=== PATIENT | male | born 1965 | race African-American/Black ===

== ENCOUNTER 2017-11-06 16:30 | Emergency (ER) | payer SELFPAY ==
[2017-11-06 16:31] VITALS: BP 160/94; PULSE 75; RESP 18; TEMP 37; O2SAT 99; BMI 26.0
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
[2017-11-06] MEDS: Naproxen 250 MG Tablet 500 MG PO (17:27)
[2017-11-06 17:29] VITALS: RESP 14
== END 2017-11-06 17:41 | disposition home or self-care (01) ==
LOC: ED 17:18
PROVIDERS: Emergency Provider Emergency Medicine
DX: M54.5 Low back pain (principal); M54.2 Cervicalgia; V89.2XXA Person injured in unspecified motor-vehicle accident, traffic, initial encounter; Y93.9 Activity, unspecified; Y92.9 Unspecified place or not applicable
CPT/HCPCS: 99283

== ENCOUNTER 2018-01-06 15:00 | Outpatient (RCR) | payer SELFPAY ==
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
== END 2018-01-06 19:00 | disposition home or self-care (01) ==
LOC: PT 15:00
PROVIDERS: Family Provider Nurse Practitioner Family; PCP Nurse Practitioner Family; Visit Provider Nurse Practitioner Family
DX: M54.40 Lumbago with sciatica, unspecified side (principal); M54.2 Cervicalgia; Z87.828 Personal history of other (healed) physical injury and trauma
CPT/HCPCS: 97014; 97035; 97110; 97162; 97530; G0283

== ENCOUNTER → 2018-01-11 09:18 | Outpatient (CLI) | payer SELFPAY ==
[2018-01-11 10:48] LABS: ALB/GLOB Ratio 0.9 RATIO (0.9-2.4); AST(SGOT) 20 U/L (15-37); Alanine Aminotransfer ALT/SGPT 34 U/L (16-61); Albumin, Serum 3.8 g/dL (3.2-5.0); Alkaline Phosphatase 84 U/L (45-117); Anion Gap 8 (5-15); BUN 24 mg/dL (7-18); BUN/Creat Ratio 23.1 RATIO (10-20); Calcium,Total 9.3 mg/dL (8.5-10.1); Chloride 105 mmol/L (98-107); Cholesterol 256 mg/dL (200); Creatinine, Serum 1.04 mg/dL (0.70-1.30); EST Glomerular Filtration Rate 80 mL/min (>60); Est Glom Filt Rate - Afr Amer 97 mL/min (>60); Globulin 4.1 g/dL (2.2-4.2); Glucose 115 mg/dL (74-106); High Density Lipoprotein 44 mg/dL; Potassium 4.2 mmol/L (3.5-5.1); Protein, Total 7.9 g/dL (6.4-8.2); Sodium Level 142 mmol/L (136-145); Triglycerides 70 mg/dL; Very Low Density Lipoprotein 14 mg/dL (5-40)
== END ==
LOC: LAB.FUTURE 01-05 09:58 → LAB 09:20
PROVIDERS: Family Provider Internal Medicine; PCP Internal Medicine; Referring Provider Internal Medicine; Visit Provider Internal Medicine
DX: E78.5 Hyperlipidemia, unspecified (principal)
CPT/HCPCS: 36415; 80053; 80061

== ENCOUNTER → 2018-01-22 17:09 | Outpatient (CLI) | payer SELFPAY ==
--- NOTE | 2018-01-22 17:10 | MRI_ITS ---
STUDY: MRI LUMBAR SPINE WITHOUT CONTRAST REASON FOR EXAM: Male, 52 years old. Low back pain radiating down the lower extremities TECHNIQUE: Standardized fat and water weighted pulse sequences were obtained in the sagittal and axial planes. COMPARISON: None FINDINGS: T12-L1: Normal endplates. Normal disc height, hydration and morphology. Normal bilateral facet joints. Normal central canal and bilateral lateral recesses. Normal bilateral intervertebral neural foramina. Normal lumbar lordosis. There is no substantial scoliosis. Normal conus medullaris that terminates at the lumbar level. L1-2: Normal endplates. Normal disc height, hydration and morphology. Normal bilateral facet joints. Normal central canal and bilateral lateral recesses. Normal bilateral intervertebral neural foramina. L2-3: Normal endplates. Normal disc height, hydration and morphology. Normal bilateral facet joints. Normal central canal and bilateral lateral recesses. Normal bilateral intervertebral neural foramina. L3-4: Normal endplates. Normal disc height, hydration and morphology. Normal bilateral facet joints. Normal central canal and bilateral lateral recesses. Normal bilateral intervertebral neural foramina. L4-5: Normal endplates. Normal disc height, hydration and morphology. Normal bilateral facet joints. Normal central canal and bilateral lateral recesses. Normal bilateral intervertebral neural foramina. L5-S1: A few millimeters anterior subluxation at L5-S1 with probable pars defects. There is unroofing of the posterior disc mild narrowing of the neural foramina bilaterally. The central thecal sac is patent. Normal visualized sacral ala. Normal visualized paraspinous soft tissue structures. MRI/Spine Lumbar (Routine) IMPRESSION: Grade 1 spondylolisthesis and spondylolysis at L5-S1. Electronically Signed: Nikolai Radford MD at 23:48 EDT , Service support ,
== END ==
PROVIDERS: Family Provider Internal Medicine; PCP Internal Medicine; Referring Provider Internal Medicine; Visit Provider Internal Medicine
DX: M54.9 Dorsalgia, unspecified (principal); G89.29 Other chronic pain
CPT/HCPCS: 72148

== ENCOUNTER → 2018-01-30 10:47 | Outpatient (CLI) | payer SELFPAY ==
[2018-01-30 13:45] LABS: Anion Gap 6 (5-15); BUN 17 mg/dL (7-18); BUN/Creat Ratio 15.7 RATIO (10-20); Calcium,Total 8.8 mg/dL (8.5-10.1); Chloride 104 mmol/L (98-107); Creatinine, Serum 1.08 mg/dL (0.70-1.30); EST Glomerular Filtration Rate 76 mL/min (>60); Est Glom Filt Rate - Afr Amer 92 mL/min (>60); Glucose 113 mg/dL (74-106); Potassium 3.8 mmol/L (3.5-5.1); Sodium Level 140 mmol/L (136-145)
== END ==
PROVIDERS: Family Provider Internal Medicine; PCP Internal Medicine; Referring Provider Internal Medicine; Visit Provider Internal Medicine
DX: I10 Essential (primary) hypertension (principal)
CPT/HCPCS: 36415; 80048

== ENCOUNTER 2021-06-01 13:17 | Outpatient (CLI) | payer OTHER, SELFPAY ==
--- NOTE | 2021-06-01 13:23 | RAD_ITS ---
STUDY: X-RAY - LUMBOSACRAL SPINE REASON FOR EXAM: Male, 56 years old. Spondylolisthesis, lumbar region TECHNIQUE: 6 view(s) of the lumbosacral spine were obtained. COMPARISON: None FINDINGS: Normal lumbar lordosis. There is no substantial scoliosis. There is normal alignment of the vertebrae from L1 to L5. There is a bilateral pars defect and grade 1 spondylolisthesis at L5/S1. There is multilevel endplate spondylosis of the lumbar vertebrae. There is multi-level degenerative disc disease with multi-level disc space narrowing. No demonstrated fracture, no instability on the flexion or extension views. Normal bilateral sacral ala, sacroiliac joints, and visualized sacrum. There is atherosclerotic calcification of the abdominal aorta without a demonstrated aneurysm. RAD/L/S Spine Comp/w Bending Views IMPRESSION: Degenerative changes of the spine, as detailed above. Bilateral pars defect with grade 1 spondylolisthesis at L5/S1 without spondylolisthesis. Electronically Signed: Lam Rand MD at 14:12 EST ,
== END 2021-06-01 23:59 | disposition home or self-care (01) ==
PROVIDERS: PCP Internal Medicine; Referring Provider Anesthesiology Pain Medicine; Visit Provider Anesthesiology Pain Medicine
DX: M43.16 Spondylolisthesis, lumbar region (principal)
CPT/HCPCS: 72114

== ENCOUNTER 2023-05-19 13:49 | Emergency (ER) | payer OTHER, SELFPAY ==
[2023-05-19 13:52] VITALS: BP 110/93; PULSE 89; RESP 18; TEMP 36.9; O2SAT 100; BMI 23.6
--- NOTE | 2023-05-19 15:16 | EX.ED.DYSGE1 ---
HPI History of Present Illness Chief Complaint: General Illness Informant: patient Onset/Context/Timing Onset: Today Narrative Narrative: Patient states he woke this morning with headache, fever, chills, body aches. He had some nausea this morning and was not sure if he may have food poisoning after eating pizza and wings last night. He also was exposed to his mother who recently had influenza. [facility] Medical History Back problem High cholesterol Ruptured, tendon, Achilles Seasonal allergies Home Medications cyclobenzaprine 10 mg tablet 10 mg PO TID PRN Muscle Spasm #60 tabs 05/20/18 [Rx Last Taken Unknown] meloxicam 15 mg tablet 15 mg PO DAILY #60 tabs 05/20/18 [Rx Last Taken Unknown] nirmatrelvir 300 mg (150 mg x2)-ritonavir 100 mg tablet,dose pack (Paxlovid) See Rx Instructions PO .COMPLEX #30 tabs 05/19/23 [Rx Last Taken Unknown] Allergy/AdvReac Type Severity Reaction Status Date / Time No Known Allergies Allergy Verified 05/19/23 13:51 Family History Mother Diabetes Social History Smoking Status: Never smoker how long ago did patient quit smokin alcohol intake: current alcohol intake frequency: holidays/special occasions only Alcohol type: beer substance use type: does not use what type of physical activity do you participate in: other details: Exercises shown by PT frequency: daily ROS ROS ED Constitutional Constitutional ED: Reports chills, fever(s) and subjective Eyes Eyes: Denies change in vision or discharge from eye(s) ENT ENT ED: Denies discharge from eye(s), rhinorrhea or sore throat Cardiovascular Cardiovascular: Denies chest pain or palpitations Respiratory/Chest Respiratory/Chest: Reports cough; Denies dyspnea Gastrointestinal Gastrointestinal: Reports nausea; Denies abdominal pain, diarrhea or vomiting Genitourinary Genitourinary ED: Denies dysuria Musculoskeletal Musculoskeletal: Reports myalgias; Denies back pain or extremity pain Integumentary Denies Abrasions or rash Neurologic Neurologic: Reports headache(s); Denies weakness Psychiatric Psychiatric: Denies anxiety or depression Allergic/Immunologic Allergic/Immunologic ED: Denies lip swelling or urticaria EXAM Physical Exam Const Vital Signs: 05/19/23 13:52 Temperature 98.5 F Temperature Source Temporal Pulse Rate 89 Respiratory Rate 18 Blood Pressure 110/93 H Blood Pressure Mean 98 Pulse Ox 100 Oxygen Delivery Method Room Air Positive well nourished and well developed General Appearance ED: well developed HEENT Reports moist mucous membranes Eyes EOMs intact bilaterally Chest Wall inspection of chest normal and palpation of chest normal Resp normal respiratory effort and clear to auscultation bilaterally Cardio regular rate and regular rhythm GI non-tender Palpation: soft Extremity normal to inspection Neuro oriented x3 and no sensory deficits noted Motor Exam: strength 5/5 throughout Psych mental status grossly normal Skin no rashes or lesions noted MDM MDM MDM Narrative Medical decision making narrative: Patient had COVID, influenza, and RSV swab obtained in triage. His COVID test does return positive. Test results are discussed with him. I do not think he needs a chest x-ray at this time. He is not on any prescription medication and is interested in taking Paxlovid. I will send this prescription to the pharmacy for him. I will also write him off work for 5 days. Discharge Plan Triage Chief Complaint: General Illness ED Provider: Nirali Ward Dx/Rx/DC Orders Clinical Impression: COVID-19 Instructions: Coronavirus Disease 2019 (COVID-19): Overview, Coronavirus Disease 2019 (COVID-19): Caring for Yourself or Others Prescriptions: New Paxlovid 300 mg (150 mg x 2)-100 mg tablets,dose pack See Rx Instructions .ROUTE .COMPLEX Qty: 30 0RF Rx Instructions: take TWO 150 mg tablets of nirmatrelvir with ONE 100 mg tablet of ritonavir twice daily for 5 days No Action cyclobenzaprine 10 mg tablet 10 mg PO TID PRN (Reason: Muscle Spasm) Qty: 60 1RF meloxicam 15 mg tablet 15 mg PO DAILY Qty: 60 2RF Rx Instructions: Take with food. Stand Alone Forms: ED Work / School Excuse Primary Care Provider: Duglas Morris Referrals: Duglas Morris MD [Primary Care Provider] - 1-2 Weeks Disposition Disposition: Home, Self Care
[2023-05-19 15:32] VITALS: BP 110/93; PULSE 89; RESP 18; TEMP 36.9; O2SAT 100
--- OUTSIDE RECORDS SUMMARY | 2023-05-19 15:37 | XMS RPT_ITS | CCD ---
Author Name Unknown Address [address] [place] [address] Organization [facility] Care Team Providers Care Back Tacker Name Role Phone Chrystal Jonas (Mechanical Engineering Specialist) Primary Care Provider CHRYSTAL JONAS Primary Care Unavailable SELF Referring Unavailable CHRYSTAL JONAS Primary Care Unavailable Allergies Allergy Classification Reported Allergen(s) Allergy Type Date of Onset Reaction(s) Facility (4 sources) Seasonal allergy; Translations: [SEASONAL ALLERGIES] Allergy to substance 9 Other: See Comments [facility] Medications Current Medications Medication Drug Class(es) Dates Sig (Normalized) Sig (Original) famotidine 20 mg oral tablet (1 source) Histamine-2 Receptor Antagonist Start: 10-03-2022 End: 11-02-2022 take 1 tablet by mouth twice daily famotidine (PEPCID) 20 mg tablet Take 1 tablet by mouth twice daily. 60 tablet 0 10/03/2022 11/02/2022 Active Completed/Discontinued Medications Medication Drug Class(es) Dates Sig (Normalized) Sig (Original) acetaminophen 500 mg oral tablet (3 sources) Start: 08-24-2018 take 2 tablets by mouth every eight hours as needed for pain acetaminophen (TYLENOL) 500 mg tablet Indications: Achilles tendon injury, left, initial encounter Take 2 tablets by mouth every 8 hours as needed for Pain. 30 tablet 0 08/24/2018 Active Problems Active Problems Problem Classification Problem Date Documented Da te Episodic/Chronic Esophageal disorders (1 source) Gastroesophageal reflux disease without esophagitis; Translations: [Gastro-esophageal reflux disease without esophagitis] Chronic Other upper respiratory disease (1 source) Seasonal allergy; Translations: [Other seasonal allergic rhinitis] Chronic Past or Other Problems Problem Classification Problem Date Documented Da te Episodic/Chronic Sprains and strains (3 sources) Rupture of left Achilles tendon; Translations: [Strain of left Achilles tendon, subsequent encounter] Onset: 10-22-2018 10-22-2018 Episodic Results Test Name Value Interpretation Reference Range Facil ity Vital Signs Date Time Vital Sign Value Performing Clinician Adore palomares 10-03-2022 12:35-0400 Body temperature 98.2 [degF] Coco Yoon APRN.FLACA Work Phone: [facility] 10-03-2022 12:35-0400 Body weight 79.83 kg Coco Yoon APRN.ENGRAVER LETTERING Work Phone: [facility] 10-03-2022 12:35-0400 Diastolic blood pressure 70 mm[Hg] Coco Yoon FIRE ENGINE PUMP OPERATOR.ENGRAVER LETTERING Work Phone: [facility] 10-03-2022 12:35-0400 Heart rate 78 /min Coco Yoon APRN.ENGRAVER LETTERING Work Phone: [facility] 10-03-2022 12:35-0400 Respiratory rate 16 /min Coco Yoon APRN.ENGRAVER LETTERING Work Phone: [facility] 10-03-2022 12:35-0400 SaO2% (BldA) [Mass fraction] 97 % Coco Yoon APRN.ENGRAVER LETTERING Work Phone: [facility] 10-03-2022 12:35-0400 Systolic blood pressure 120 mm[Hg] Coco Yoon APRN.ENGRAVER LETTERING Work Phone: [facility] Encounters Encounter Date Encounter Type Care Provider Facility Start: 12-31-2022 End: 12-31-2022 ambulatory CHRYSTAL JONAS Facility:[facility] Start: 10-03-2022 End: 10-03-2022 ambulatory SELF Facility:[facility] Start: 10-03-2022 End: 10-03-2022 Patient encounter procedure Coco Yoon APRN.ENGRAVER LETTERING Work Phone: [facility] Plan of Treatment Date Care Activity Detail Author Start: 11-30-2022 Influenza vaccination INFLUENZA (#1) [facility] Start: 04-01-2022 DEPRESSION ASSESSMENT DEPRESSION ASS ESSMENT [facility] Start: 11-30-2021 Influenza vaccination INFLUENZA (Sea son Ended) [facility] Start: 2021 PROSTATE CANCER SCRE ENING DISCUSSION PROSTATE CANCER SCREENING DISCUSSION [facility] Start: 02-06-2016 SHINGRIX VACCINE (1 of 2) SHINGRIX V ACCINE (1 of 2) [facility] Start: 2011 COLOGUARD (FIT-DNA) COLOGUARD (FIT-D NA) [facility] Start: 2011 Colonoscopy COLONOSCOPY [facility] Start: 2011 COLORECTAL CANCER SCREENING COLORECTAL CANCER SCREENING [facility] Start: [address] COLONOGRAPHY [facility] Start: 2011 DIABETES SCREEN DIABETES SCREEN [facility] Start: 2011 FECAL OCCULT BLOOD FECAL OCCULT BLOO D [facility] Start: 2011 SIGMOIDOSCOPY SIGMOIDOSCOPY [facility] Start: 2001 LIPID SCREEN LIPID SCREEN [facility] Start: 1985 Urine microalbumin profile DTAP,TDAP ,TD (1 - Tdap) [facility] Start: 02-06-1984 HEPATITIS C SCREENING HEPATITIS C SC REENING [facility] Start: 02-06-1984 HIV SCREENING HIV SCREENING [facility] Start: [address] [facility] assessment DEPRESSION SCREENING [facility] Start: 1971 COVID-19 VACCINE (#1) COVID-19 VACCI NE (#1) [facility] Start: 1971 COVID-19 VACCINE (1) COVID-19 VACCIN E (1) [facility] Start: 1966 COVID-19 VACCINE (#1) COVID-19 VACCI NE (#1) [facility] Start: 1966 HEPATITIS B (1 of 3 - 3-dose series) HEPATITIS B (1 of 3 - 3-dose series) [facility] Payers Date Payer Category Payer Unknown [facility] [employer]ED [id number] 2021-Present [phone] [address] [place] [address] PPO [id number] 2021 Unknown [id number] 2018 Unknown [facility] PRE [employer] SELF FUNDED [id number] 2018-Present [phone] [address] [place] [address] PPO [id number] Social History Date Type Detail Facility Start: 08-24-2018 End: 10-03-2022 Tobacco smoking status NHIS Never smoked tobacco [facility] Start: 08-24-2018 End: 10-03-2022 Tobacco use and exposure Smokeless tobacco non-user [facility] Start: 02-24-2019 End: 10-03-2022 Alcohol intake Current drinker of alcohol (finding) [facility] Start: 09-15-2018 History SDOH Alcohol Comment occasionally [facility] Start: 1965 Sex Assigned At Not on file [facility] Progress note 12-31-2022 Note Date & Type Note Facility 12-31-2022 Note HNO ID: [id number] Author: Harika Bello APRN.ENGRAVER LETTERING Service: ? Author Type: Nurse Practitioner Type: Progress Notes Filed: 12/31/2022 4:27 PM Note Text: Subjective Came in with complaints of itching rash on face neck and groin. Patient said he was washing his car and using soaps and remembers touching his face. Patient says it just itches. Patient denies any pain or spreading. Patient denies any other symptoms at this time. The history is provided by the patient. No health information specialist was used. Rash Review of Systems Constitutional: Negative. Skin: Positive for itching and rash. Objective Physical Exam Constitutional: Appearance: Normal appearance. Pulmonary: Effort: Pulmonary effort is normal. Skin: Comments: Contact dermatitis located in the areas marked above. Patient did not disclose his groin area. Neurological: Mental Status: He is alert. No past medical history on file. No past surgical history on file. ALLERGIES Seasonal Allergies MEDICATIONS cetirizine (ZYRTEC) 10 mg tablet Take 1 tablet by mouth once daily. fluticasone (FLONASE) 50 mcg/actuation nasal spray Use 2 Sprays in each nostril once daily. Rinse mouth after use. Ascorbic Acid (VITAMIN C) 100 mg tablet Take 100 mg by mouth once daily. multivitamin-ferrous fumarate-folic acid (CENTRUM) Take 1 tablet by mouth once daily. predniSONE (DELTASONE) 10 mg tablet Take 4 tabs daily for 3 days, then 2 tabs daily for 3 days, then 1 tab daily for 3 days with food. triamcinolone acetonide (KENALOG) 0.1 % cream Apply 1 application to affected area three times daily. Apply sparingly to area for rash/itching. (Patient not taking: Reported on 10/03/2022) meloxicam (MOBIC) 15 mg tablet Take 1 tablet by mouth once daily. (Patient not taking: Reported on 10/03/2022) cyclobenzaprine (FLEXERIL) 10 mg tablet 10 mg. (Patient not taking: Reported on 10/03/2022) ibuprofen (MOTRIN) 600 mg tablet Take 600 mg by mouth. hydroCHLOROthiazide (HYDRODIURIL, ESIDRIX) 12.5 mg tablet 12.5 mg. acetaminophen (TYLENOL) 500 mg tablet Take 2 tablets by mouth every 8 hours as needed for Pain. (Patient not taking: Reported on 02/09/2019 ) No family history on file. Social History Tobacco Use Smoking status: Never Smokeless tobacco: Never Substance Use Topics Alcohol use: Yes Comment: occasionally Drug use: Never ASSESSMENT/PLAN: 1. Allergic contact dermatitis due to plants, except food - ICD9: 692.6, ICD10: L23.7 - PREDNISONE 10 MG TABLET Patient educated about proper use of medication supportive therapies. Patient will follow-up if signs and symptoms seem to getting worse not better. Patient was okay with this care plan. Harika Bello APRN.ENGRAVER LETTERING [facility] Progress note 10-03-2022 Note Date & Type Note Facility 10-03-2022 Note HNO ID: [id number] Author: Coco Yoon APRN.ENGRAVER LETTERING Service: ? Author Type: Nurse Practitioner Type: Progress Notes Filed: 10/03/2022 1:04 PM Note Text: Subjective The history is provided by the patient. No health information specialist was used. NING Miller is a 57 year old male who presents today for CC of seasonal allergies - having mild nasal drainage, and itchy watery eyes. Also has a h/o acid reflux, needs prescription for something to help. He denies any chest pain or sob. BP 120/70 Pulse 78 Temp 36.8 ?C (98.2 ?F) Resp 16 Wt 79.8 kg (176 lb) SpO2 97% BMI 24.55 kg/m? Social History Tobacco Use Smoking status: Never Smokeless tobacco: Never Substance Use Topics Alcohol use: Yes Comment: occasionally Drug use: Never History reviewed. No pertinent past medical history. I have confirmed and edited as necessary, the [facility] Review of Systems Constitutional: Negative for chills and fever. HENT: Negative for congestion, ear pain, sinus pain and sore throat. Eyes: Positive for discharge (clear, itchy watery). Respiratory: Negative for cough, sputum production, shortness of breath and wheezing. Cardiovascular: Positive for chest pain. Gastrointestinal: Positive for heartburn. Negative for abdominal pain, diarrhea, nausea and vomiting. Musculoskeletal: Negative for myalgias. Neurological: Negative for headaches. Objective Physical Exam Vitals and nursing note reviewed. Pulmonary: Effort: Pulmonary effort is normal. Skin: General: Skin is warm and dry. Neurological: Mental Status: He is alert and oriented to person, place, and time. Psychiatric: Mood and Affect: Affect normal. ASSESSMENT/PLAN: 1. Seasonal allergies - ICD9: 477.9, ICD10: J30.2 (primary diagnosis) Zyrtec, flonase, and zaditor as ordered Follow up with PCP prn 2. Gastroesophageal reflux disease without esophagitis - ICD9: 530.81, ICD10: K21.9 - pepcid as ordered Follow up with PCP Diagnosis and treatment plan were discussed and questions were answered to the patient's satisfaction. Pt acknowledged understanding of concepts and follow up plan. Specific signs and symptoms that would indicate the need for higher level of care were discussed in detail warranting prompt ER evaluation. Coco Yoon APRN.CNP [facility] Instructions 10-03-2022 Patient Instructions Note Date & Type Note Facility 10-03-2022 Instructions Coco Yoon APRN.CNP - 10/03/2022 12:51 PM EDT For Allergies: Zyrtec 10 mg By mouth daily at bedtime Flonase 2 sprays in each nostril once a day Zaditor eye drops daily For Acid reflux On an empty stomach take 1 - 20 mg Pepcid, wait 30 min before eating, salgado this twice a day Recommend follow up in 2 weeks with Primary Care Provider. To ER for worsening symptoms, increased pain, fevers, vomiting, decreased urine output, blood in her urine blood in her stools or dark tarry stools. documented in this encounter [facility] History of Present illness Narrative 10-03-2022 Coco Yoon APRN.FLACA - 10/03/2022 12:28 PM EDT Note Date & Type Note Facility 10-03-2022 History of Presen t illness Narrative Subjective The history is provided by the patient. No health information specialist was used. NING Miller is a 57 year old male who presents today for CC of seasonal allergies - having mild nasal drainage, and itchy watery eyes. Also has a h/o acid reflux, needs prescription for something to help. He denies any chest pain or sob. BP 120/70 Pulse 78 Temp 36.8 C (98.2 F) Resp 16 Wt 79.8 kg (176 lb) SpO2 97% BMI 24.55 kg/m Social History Tobacco Use Smoking status: Never Smokeless tobacco: Never Substance Use Topics Alcohol use: Yes Comment: occasionally Drug use: Never History reviewed. No pertinent past medical history. I have confirmed and edited as necessary, the [facility] Review of Systems Constitutional: Negative for chills and fever. HENT: Negative for congestion, ear pain, sinus pain and sore throat. Eyes: Positive for discharge (clear, itchy watery). Respiratory: Negative for cough, sputum production, shortness of breath and wheezing. Cardiovascular: Positive for chest pain. Gastrointestinal: Positive for heartburn. Negative for abdominal pain, diarrhea, nausea and vomiting. Musculoskeletal: Negative for myalgias. Neurological: Negative for headaches. Objective Physical Exam Vitals and nursing note reviewed. Pulmonary: Effort: Pulmonary effort is normal. Skin: General: Skin is warm and dry. Neurological: Mental Status: He is alert and oriented to person, place, and time. Psychiatric: Mood and Affect: Affect normal. ASSESSMENT/PLAN: 1. Seasonal allergies - ICD9: 477.9, ICD10: J30.2 (primary diagnosis) Zyrtec, flonase, and zaditor as ordered Follow up with PCP prn 2. Gastroesophageal reflux disease without esophagitis - ICD9: 530.81, ICD10: K21.9 - pepcid as ordered Follow up with PCP Diagnosis and treatment plan were discussed and questions were answered to the patient's satisfaction. Pt acknowledged understanding of concepts and follow up plan. Specific signs and symptoms that would indicate the need for higher level of care were discussed in detail warranting prompt ER evaluation. Coco Yoon APRN.ENGRAVER LETTERING documented in this encounter [facility] Note 08-20-2021 Telephone Encounter - Kim Almonte RN - 08/20/2021 8:08 PM EDT Note Date & Type Note Facility 08-20-2021 Miscellaneous Notes Rash. He is signing on now to [facility] Reason for Disposition [1] Purple or blood-colored rash (spots or dots) AND [2] no fever AND [3] sounds well to triager Answer Assessment - Initial Assessment Questions 1. APPEARANCE of RASH: Red dots that do not cookie. One looks like a blister 2. SIZE: Tip of a pen 3. LOCATION: Arms and back 4. COLOR: Red and some skin colored 5. ONSET: night 6. FEVER:Denies 7. ITCHING: It did prior to putting on calamine lotion 8. CAUSE: Unknown 9. MEDICATION FACTORS: Only med he is on cyclobenzaprine. He is also applying calamine lotion, hydrocortisone cream and an otc anti-itch cream to the rash 10. OTHER SYMPTOMS: Denies Protocols used: RASH OR REDNESS - [id number] documented in this encounter [facility] Note 07-27-2021 Telephone Encounter - Haley Bustillos RN - 07/27/2021 9:47 PM EDT Note Date & Type Note Facility 07-27-2021 Miscellaneous Notes Patient calling with request for health information: patient requesting health information about requesting if he can take medication for his headache after having a cortisone shot today. Patient denies any new or worsening symptoms of which a provider is not aware: No. Patient is having a headache currently but declines triage at this time. Patient inquiring if he can take tylenol for his headache. Instructed patient that as long as he was not told by his physician then he could take tylenol for his headache per package directions. GO TO THE EMERGENCY ROOM OR CALL 911 IF: * You develop any new symptoms * Your condition worsens * You are concerned or anxious about your condition for any other reason. If you have any questions, you can call Nurse longwall foreman back. documented in this encounter [facility] Evaluation note Note Date & Type Note Facility documented in this encounter [facility] Summary Purpose Family History No Family History Records Found Advance Directives No Advanced Directives Records Found Additional Source Comments Source Comments (unrecognize d section and content) In the event this informatio n is protected by the Federal Confidentiality of Alcohol and Drug Abuse Patient Records regulations: The Federal rules restrict any use of the information to criminally investigate or prosecute any alcohol or drug abuse patient.[facility] the event this information is protected by the Federal Confidentiality of Alcohol and Drug Abuse Patient Records regulations: The Federal rules restrict any use of the information to criminally investigate or prosecute any alcohol or drug abuse patient.[facility] the event this information is protected by the Federal Confidentiality of Alcohol and Drug Abuse Patient Records regulations: The Federal rules restrict any use of the information to criminally investigate or prosecute any alcohol or drug abuse patient.[facility] Reason for Visit (unrecogniz ed section and content) Reason Comments Derm Problem Reason Comments Eye Problem left eye swelling un hermilo eye and acid reflex x over 6 months Care Teams (unrecognized sec tion and content) Back Tacker Relationship Specialty Start Date End Date Chrystal Jonas ([facility]) [address] [place] [address] PCP - General Family Medicine 08/24/18 (unrecognized sect ion and content) No Status Records Found INFORMATION SOURCE (unrecogn ized section and content) FOR RECORDS PERTAINING TO PATIENTS WHO ARE OR HAVE BEEN ENROLLED IN A CHEMICAL DEPENDENCY/SUBSTANCEABUSE PROGRAM, SOME INFORMATION MAY BE OMITTED. This clinical summary was aggregated from multiple sources. Caution should be exercised in using it in the provision of clinical care. This summary normalizes information from multiple sources, and as a consequence, information in this document may materially change the coding, format and clinical context of patient data. In addition, data may be omitted in some cases. CLINICAL DECISIONS SHOULD BE BASED ON THE PRIMARY CLINICAL RECORDS. [facility] [employer] [facility]. provides no warranty or guarantee of the accuracy or completeness of information in this document.
== END 2023-05-19 15:55 | disposition home or self-care (01) ==
LOC: ED 15:35
PROVIDERS: Emergency Provider Emergency Medicine; PCP Internal Medicine; Visit Provider Emergency Medicine
DX: U07.1 COVID-19 (principal); E78.00 Pure hypercholesterolemia, unspecified
CPT/HCPCS: 87631; 99282

== ENCOUNTER → 2023-05-29 | Outpatient (CLI) | payer OTHER, SELFPAY ==
[2023-05-29 16:37] LABS: Absolute Lymphocyte Count 1.92 X10^3/uL (0.83-4.51); Absolute Neutrophil Count 3.3 X10^3/uL (2.0-7.7); Basophil# 0.03 X10^3/uL; Basophil% 0.5 % (0-1); Eosinophil# 0.11 X10^3/uL; Eosinophils% 1.8 % (0-5); Hematocrit 40.6 % (40-54); Hemoglobin 12.6 g/dL (13.0-16.5); Lymphocyte # 1.92 X10^3/ul (0.83-4.51); Lymphocyte % 32.1 % (19-41); Mean Corpuscular Hgb 25.5 pg (27.0-32.0); Mean Corpuscular Volume 82.2 fL (80-94); Mean Platelet Vol. 10.6 fl (6.2-12.0); NRBC Flagged by Analyzer 0 % (0-5); Neutrophil # 3.29 X10^3/uL (2.7-7.7); Neutrophil % 55.1 % (47-70); Platelet Count 305 K/mm3 (150-450); RBC Distribution Width CV 14.8 % (11.6-14.6); RBC Distribution Width SD 44.1 fl (35.1-43.9); Red Blood Count 4.94 M/mm3 (4.6-6.2)
[2023-05-29 16:55] LABS: ALB/GLOB Ratio 0.9 RATIO (0.9-2.4); AST(SGOT) 12 U/L (15-37); Alanine Aminotransfer ALT/SGPT 20 U/L (16-61); Albumin, Serum 3.6 g/dL (3.2-5.0); Alkaline Phosphatase 73 U/L (45-117); Anion Gap 4 (5-15); BUN 23 mg/dL (7-18); BUN/Creat Ratio 23.1 RATIO (10-20); Calcium,Total 9.2 mg/dL (8.5-10.1); Chloride 106 mmol/L (98-107); Cholesterol 226 mg/dL (200); EST Glomerular Filtration Rate 82 mL/min (>60); Est Glom Filt Rate - Afr Amer 99 mL/min (>60); Globulin 4.2 g/dL (2.2-4.2); Glucose 124 mg/dL (74-106); High Density Lipoprotein 41 mg/dL; Potassium 4.2 mmol/L (3.5-5.1); Protein, Total 7.8 g/dL (6.4-8.2); Sodium Level 139 mmol/L (136-145); Triglycerides 101 mg/dL; Very Low Density Lipoprotein 20 mg/dL (5-40)
--- OUTSIDE RECORDS SUMMARY | 2023-05-30 00:18 | XMS RPT_ITS | CCD ---
Author Name Unknown Address [address] [place] [address] Organization [facility] Care Team Providers Care Pastoral Counselor Name Role Phone Chrystal Jonas (Procurement Coordinator) Primary Care Provider CHRYSTAL JONAS Primary Care Unavailable SELF Referring Unavailable CHRYSTAL JONAS Primary Care Unavailable Allergies Allergy Classification Reported Allergen(s) Allergy Type Date of Onset Reaction(s) Facility (4 sources) Seasonal allergy; Translations: [SEASONAL ALLERGIES] Allergy to substance 9 Other: See Comments [facility] Medications Current Medications Medication Drug Class(es) [...] Time Vital Sign Value Performing Clinician Adore palomaers 10-03-2022 12:35-0400 Body temperature 98.2 [degF] Coco Yoon APRN.FLACA Work Phone: [facility] 10-03-2022 12:35-0400 Body weight 79.83 kg Coco Yoon APRN.BOOM TENDER Work Phone: [facility] 10-03-2022 12:35-0400 Diastolic blood pressure 70 mm[Hg] Coco Yoon DRUM DRIER.BOOM TENDER Work Phone: [facility] 10-03-2022 12:35-0400 Heart rate 78 /min Coco Yoon APRN.BOOM TENDER Work Phone: [facility] 10-03-2022 12:35-0400 Respiratory rate 16 /min Coco Yoon APRN.BOOM TENDER Work Phone: [facility] 10-03-2022 12:35-0400 SaO2% (BldA) [Mass fraction] 97 % Coco Yoon APRN.BOOM TENDER Work Phone: [facility] 10-03-2022 12:35-0400 Systolic blood pressure 120 mm[Hg] Coco Yoon APRN.BOOM TENDER Work Phone: [facility] Encounters Encounter Date Encounter Type Care Provider Facility Start: 12-31-2022 End: 12-31-2022 ambulatory CHRYSTAL JONAS Facility:[facility] Start: 10-03-2022 End: 10-03-2022 ambulatory SELF Facility:[facility] Start: 10-03-2022 End: 10-03-2022 Patient encounter procedure Coco Yoon APRN.BOOM TENDER Work Phone: [facility] Plan of Treatment Date Care Activity Detail Author Start: 11-30-2022 Influenza vaccination INFLUENZA (#1) [facility] Start: 04-01-2022 DEPRESSION ASSESSMENT DEPRESSION ASS ESSMENT [facility] Start: 11-30-2021 Influenza vaccination INFLUENZA (Sea son Ended) [facility] Start: 2021 PROSTATE CANCER SCRE ENING DISCUSSION PROSTATE CANCER SCREENING DISCUSSION [facility] Start: 02-06-2016 SHINGRIX VACCINE (1 of 2) SHINGRIX V ACCINE (1 of 2) [facility] Start: 2011 COLOGUARD (FIT-DNA) COLOGUARD (FIT-D NA) [facility] Start: 2011 Colonoscopy COLONOSCOPY [facility] Start: 2011 COLORECTAL CANCER SCREENING COLORECTAL CANCER SCREENING [facility] Start: [address] COLONOGRAPHY [facility] Start: 2011 DIABETES SCREEN DIABETES SCREEN [facility] Start: 2011 FECAL OCCULT BLOOD FECAL OCCULT BLOO D [facility] Start: 2011 SIGMOIDOSCOPY SIGMOIDOSCOPY [facility] Start: 2001 LIPID SCREEN LIPID SCREEN [facility] Start: 1985 Urine microalbumin profile DTAP,TDAP ,TD (1 - Tdap) [facility] Start: 02-06-1984 HEPATITIS C SCREENING HEPATITIS C SC REENING [facility] Start: 02-06-1984 HIV SCREENING HIV SCREENING [facility] Start: 1978 Adult depression [facility] assessment DEPRESSION SCREENING [facility] Start: 1971 COVID-19 VACCINE (#1) COVID-19 VACCI NE (#1) [facility] Start: 1971 COVID-19 VACCINE (1) COVID-19 VACCIN E (1) [facility] Start: 1966 COVID-19 VACCINE (#1) COVID-19 VACCI NE (#1) [facility] Start: 1966 HEPATITIS B (1 of 3 - 3-dose series) HEPATITIS B (1 of 3 - 3-dose series) [facility] Payers Date Payer Category Payer Unknown [facility] [employer] [id number] 2021-Present [phone] [address] [place] [address] PPO [id number] 2021 Unknown [id number] 2018 Unknown [facility] [employer] [id number] 2018-Present [phone] [address] [place] [address] PPO [id number] Social History Date Type Detail Facility Start: 08-24-2018 End: 10-03-2022 Tobacco smoking status NHIS Never smoked tobacco [facility] Start: 08-24-2018 End: 10-03-2022 Tobacco use and exposure Smokeless tobacco non-user [facility] Start: 02-24-2019 End: 10-03-2022 Alcohol intake Current drinker of alcohol (finding) [facility] Start: 09-15-2018 History SDOH Alcohol Comment occasionally [facility] Start: 1965 Sex Assigned At Not on file C [facility] Progress note 12-31-2022 Note Date & Type Note Facility 12-31-2022 Note HNO ID: [id number] Author: Harika Bello APRN.BOOM TENDER Service: ? Author Type: Nurse Practitioner Type: [...] history is provided by the patient. No foreign language interpreter was used. Rash Review of Systems Constitutional: [...] okay with this care plan. Harika Bello APRN.BOOM TENDER [facility] Progress note 10-03-2022 Note Date & Type Note Facility 10-03-2022 Note HNO ID: [id number] Author: Coco Yoon APRN.BOOM TENDER Service: ? Author Type: Nurse Practitioner Type: Progress Notes Filed: 10/03/2022 1:04 PM Note Text: Subjective The history is provided by the patient. No foreign language interpreter was used. NING Miller is a 57 [...] have confirmed and edited as necessary, the [facility] Review of Systems Constitutional: Negative for chills [...] warranting prompt ER evaluation. Coco Yoon APRN.CNP [facility] Instructions 10-03-2022 Patient Instructions Note Date & [...] dark tarry stools. documented in this encounter [facility] History of Present illness Narrative 10-03-2022 Coco Yoon APRN.FLACA - 10/03/2022 12:28 PM EDT Note Date & Type Note Facility 10-03-2022 History of Presen t illness Narrative Subjective The history is provided by the patient. No foreign language interpreter was used. NING Miller is a 57 [...] have confirmed and edited as necessary, the [facility] Review of Systems Constitutional: Negative for chills [...] detail warranting prompt ER evaluation. Coco Yoon APRN.BOOM TENDER documented in this encounter [facility] Note 08-20-2021 Telephone Encounter - Kim [...] Denies Protocols used: RASH OR REDNESS - [id number] documented in this encounter [facility] Note 07-27-2021 Telephone Encounter - Haley [...] have any questions, you can call Nurse sports information director back. documented in this encounter [facility] Evaluation note Note Date & Type Note Facility documented in this encounter [facility] Summary Purpose Family History No Family [...] or prosecute any alcohol or drug abuse patient[facility] the event this information is protected by the Federal Confidentiality of Alcohol and Drug Abuse Patient Records regulations: The Federal rules restrict any use of the information to criminally investigate or prosecute any alcohol or drug abuse patient.[facility] the event this information is protected by the Federal Confidentiality of Alcohol and Drug Abuse Patient Records regulations: The Federal rules restrict any use of the information to criminally investigate or prosecute any alcohol or drug abuse patient.[facility] Reason for Visit (unrecogniz ed section and content) Reason Comments Derm Problem Reason Comments Eye Problem left eye swelling un hermilo eye and acid reflex x over 6 months Care Teams (unrecognized sec tion and content) Pastoral Counselor Relationship Specialty Start Date End Date Chrystal Jonas ([facility]) [address] [place] [address] PCP - General Family Medicine [...] BE BASED ON THE PRIMARY CLINICAL RECORDS. [facility] [employer] [facility]. provides no warranty or guarantee of the accuracy or completeness of information in this document.
== END | disposition home or self-care (01) ==
LOC: BIMLAB 15:00
PROVIDERS: PCP Internal Medicine; Referring Provider Internal Medicine; Visit Provider Internal Medicine
DX: I10 Essential (primary) hypertension (principal)
CPT/HCPCS: 36415; 80053; 80061; 85025

== ENCOUNTER → 2023-09-11 | Outpatient (CLI) | payer OTHER, SELFPAY ==
[2023-09-11 17:11] LABS: Cholesterol 242 mg/dL (200); High Density Lipoprotein 48 mg/dL; PSA,Total - Annual Screen 0.48 ng/mL (0.00-4.00); Triglycerides 92 mg/dL; Very Low Density Lipoprotein 18 mg/dL (5-40)
== END | disposition home or self-care (01) ==
LOC: BIMLAB 15:12
PROVIDERS: PCP Internal Medicine; Visit Provider Internal Medicine
DX: Z12.5 Encounter for screening for malignant neoplasm of prostate (principal); E78.5 Hyperlipidemia, unspecified
CPT/HCPCS: 36415; 80061; 84153; G0103

== ENCOUNTER 2023-10-18 07:00 | Emergency (ER) | payer OTHER, SELFPAY ==
[2023-10-18 07:02] VITALS: BP 121/79; PULSE 63; RESP 16; TEMP 36.7; O2SAT 99; BMI 24.3
--- NOTE | 2023-10-18 07:14 | EDS_ITS ---
HPI History of Present Illness Chief Complaint: Allergic Reaction Informant: patient Onset/Context/Timing Onset: Yesterday Narrative Narrative: Patient presents due to concerns for allergic reaction. He had his hair and clarke cut and dyed yesterday. He noted a few small itchy bumps last evening and this morning only along his scalp and clarke. No shortness of breath. He did take Benadryl prior to arrival. [facility] Medical History Health care maintenance Screening for prostate cancer GERD (gastroesophageal reflux disease) Ruptured, tendon, Achilles High cholesterol Back problem Seasonal allergies Home Medications ?Medication ?Instructions ?Recorded ?Last Taken ?Type omeprazole 40 mg capsule,delayed 40 mg PO DAILY #90 caps 09/11/23 Unknown Rx release prednisone 20 mg tablet 40 mg (2 x 20 mg) PO DAILY #8 tabs 10/18/23 Unknown Rx Allergy/AdvReac Type Severity Reaction Status Date / Time Seasonal Allergies: Uncoded Allergy Mild sneezing Verified 10/18/23 07:02 Family History Mother Diabetes Social History Smoking Status: Never smoker how long ago did patient quit smokin alcohol intake: current alcohol intake frequency: holidays/special occasions only Alcohol type: beer substance use type: does not use what type of physical activity do you participate in: other details: Exercises shown by PT frequency: daily ROS ROS ED Constitutional Constitutional ED: Denies chills or fever(s) Eyes Eyes: Denies discharge from eye(s) ENT ENT ED: Denies discharge from eye(s), rhinorrhea or sore throat Cardiovascular Cardiovascular: Denies chest pain Respiratory/Chest Respiratory/Chest: Denies cough or dyspnea Gastrointestinal Gastrointestinal: Denies abdominal pain Musculoskeletal Musculoskeletal: Denies back pain or extremity pain Integumentary Reports rash; Denies Abrasions Neurologic Neurologic: Denies headache(s) or weakness Allergic/Immunologic Allergic/Immunologic ED: Denies lip swelling or urticaria EXAM Physical Exam Const Vital Signs: 10/18/23 07:02 Temperature 98.1 F Temperature Source Oral Pulse Rate 63 Respiratory Rate 16 Blood Pressure 121/79 H Blood Pressure Mean 93 Pulse Ox 99 Oxygen Delivery Method Room Air Positive well nourished and well developed General Appearance ED: well developed HEENT Reports moist mucous membranes Eyes EOMs intact bilaterally Chest Wall inspection of chest normal and palpation of chest normal Resp normal respiratory effort and clear to auscultation bilaterally Cardio regular rate and regular rhythm GI non-tender Palpation: soft Extremity normal to inspection Neuro oriented x3 and no sensory deficits noted Motor Exam: strength 5/5 throughout Psych mental status grossly normal Skin Skin Narrative: Small urticarial lesion noted along the left maxilla. No facial edema or erythema. MDM MDM MDM Narrative Medical decision making narrative: Patient had already taken Benadryl. Patient will be given a course of Prednisone, first dose given here. Return instructions given. Discharge Plan Triage Chief Complaint: Allergic Reaction ED Provider: Nirali Ward Dx/Rx/DC Orders Clinical Impression: Allergic reaction Instructions: ED General Allergic Reactions Prescriptions: New prednisone 20 mg tablet 40 mg PO DAILY Qty: 8 0RF No Action omeprazole 40 mg capsule,delayed release(DR/EC) 40 mg PO DAILY Qty: 90 1RF Rx Instructions: Take 30 minutes before breakfast Primary Care Provider: Duglas Morris Referrals: Duglas Morris MD [Primary Care Provider] - 3-5 Days if not improving Print Language: Yakut Disposition Disposition: Home, Self Care
[2023-10-18] MEDS: predniSONE 20 MG Tablet 40 MG PO (07:21)
[2023-10-18 07:26] VITALS: BP 125/81; PULSE 81; RESP 16; TEMP 36.6; O2SAT 99
== END 2023-10-18 07:33 | disposition home or self-care (01) ==
PROVIDERS: Emergency Provider Emergency Medicine; PCP Internal Medicine; Visit Provider Emergency Medicine
DX: T78.49XA Other allergy, initial encounter (principal); E78.00 Pure hypercholesterolemia, unspecified; K21.9 Gastro-esophageal reflux disease without esophagitis; Z79.899 Other long term (current) drug therapy
CPT/HCPCS: 99282

== ENCOUNTER 2024-01-01 13:34 | Emergency (ER) | payer OTHER, SELFPAY ==
[2024-01-01 13:35] VITALS: BP 146/87; PULSE 75; RESP 16; TEMP 36.6; O2SAT 97; BMI 23.8
--- NOTE | 2024-01-01 15:23 | EX.ED.DYSGE1 ---
HPI History of Present Illness Chief Complaint: Allergic Reaction Narrative Narrative: Patient is a 58-year-old male with history of hypertension, hyperlipidemia and prior allergic reaction to hair dye presenting with facial swelling and concern of allergic reaction. Patient had a [facility] appointment today where he had a hair cut, clarke trim and then placed on his hair and clarke. This was around 1 PM. He states after that he started feel like his lower face was getting swollen. Since he had a prior reaction he came to the ER. He did not take any medication for symptoms prior to arrival. Denies any swelling in his mouth. As he difficulty swallowing. Denies any shortness of breath. No other complaints or concerns reported at this time [facility] Medical History Hemorrhoids Colon cancer screening Health care maintenance Screening for prostate cancer GERD (gastroesophageal reflux disease) Ruptured, tendon, Achilles High cholesterol Back problem Seasonal allergies Home Medications ?Medication ?Instructions ?Recorded ?Last Taken ?Type omeprazole 40 mg capsule,delayed 40 mg PO DAILY PRN GERD #90 caps 12/11/23 Unknown Rx release diphenhydramine HCl 25 mg capsule 25 - 50 mg (1 - 2 x 25 mg) PO TID 01/01/24 Unknown Rx (Benadryl) PRN allergic reaction #20 caps famotidine 20 mg tablet (Pepcid) 20 mg PO DAILY #7 tabs 01/01/24 Unknown Rx prednisone 20 mg tablet 40 mg (2 x 20 mg) PO DAILY #8 tabs 01/01/24 Unknown Rx Allergy/AdvReac Type Severity Reaction Status Date / Time Seasonal Allergies: Uncoded Allergy Mild sneezing Verified 01/01/24 13:35 Family History Mother Diabetes Social History Smoking Status: Never smoker how long ago did patient quit smokin alcohol intake: current alcohol intake frequency: holidays/special occasions only Alcohol type: beer substance use type: does not use what type of physical activity do you participate in: other details: Exercises shown by PT frequency: daily ROS ROS ED Constitutional Constitutional ED: Denies chills or fever(s) Eyes Eyes: Denies change in vision ENT ENT ED: Reports other Details: facial swelling ; Denies sore throat Cardiovascular Cardiovascular: Denies chest pain or palpitations Respiratory/Chest Respiratory/Chest: Denies dyspnea Gastrointestinal Gastrointestinal: Denies nausea or vomiting Integumentary Reports rash Neurologic Neurologic: Denies headache(s) EXAM Physical Exam Const Vital Signs: 01/01/24 13:35 Temperature 97.8 F Temperature Source Oral Pulse Rate 75 Respiratory Rate 16 Blood Pressure 146/87 H Blood Pressure Mean 106 Pulse Ox 97 Oxygen Delivery Method Room Air Positive well nourished and well developed General Appearance ED: well developed and NAD HEENT Reports TM's clear and moist mucous membranes HEENT Narrative: Normal oropharynx. Very subtle swelling of the periorbital area/chin. Uvula is midline. Tympanic Membrane ED: Yes TM's clear Eyes PERRL and EOMs intact bilaterally Eyes Narrative: No periorbital edema appreciated Neck supple and no JVD Neck Narrative: No stridor Chest Wall inspection of chest normal and palpation of chest normal Resp normal respiratory effort and clear to auscultation bilaterally Cardio regular rate and regular rhythm GI normal to inspection, nondistended, normoactive bowel sounds and non-tender Extremity normal to inspection Neuro oriented x3 Sensorium / Orientation: alert Motor Exam: general weakness Psych mental status grossly normal Skin no rashes or lesions noted and no wounds Skin Narrative: No urticaria appreciated MDM MDM MDM Narrative Medical decision making narrative: Patient is evaluated for localized allergic reaction. He has some swelling of his face that is subtle. It seems to be triggered by this hair dye. This not the first time he had this reaction. Patient overall is well-appearing with no signs of anaphylaxis. No oropharyngeal edema appreciated. Patient is hemodynamically stable. He does not have any wheezing. He is counseled that he should go home and wash his face and hair as thoroughly as possible to help get off any additional hair dye. Is counseled he needs to stop dying his hair and face as he seems to be having a reaction to it. Will be treated with Benadryl, Pepcid and prednisone. Is given return precautions. He verbalized agreement or stands plan. Discharged home in stable condition. Discharge Plan Triage Chief Complaint: Allergic Reaction ED Provider: Tosha Reed Dx/Rx/DC Orders Clinical Impression: Allergic reaction to hair dye Instructions: ED General Allergic Reactions Prescriptions: New prednisone 20 mg tablet 40 mg PO DAILY Qty: 8 0RF famotidine [Pepcid] 20 mg tablet 20 mg PO DAILY Qty: 7 0RF diphenhydramine HCl [Benadryl] 25 mg capsule 25 - 50 mg PO TID PRN (Reason: allergic reaction) Qty: 20 0RF No Action omeprazole 40 mg capsule,delayed release(DR/EC) 40 mg PO DAILY PRN (Reason: GERD) Qty: 90 1RF Rx Instructions: Take 30 minutes before breakfast Primary Care Provider: Duglas Morris Referrals: Duglas Morris MD [Primary Care Provider] - Activity Restrictions/Additional Instructions: Please go home and wash your hair and face to try to get as much off it is possible. Please do not use hair dye again as this seems to be causing allergic reactions. Take medications as prescribed. We have difficulty breathing or swelling inside your mouth please immediately turn to the emergency room Print Language: Serbian Disposition Disposition: Home, Self Care
[2024-01-01] MEDS: Famotidine 20 MG Tablet PO (15:27)
[2024-01-01] MEDS: DiphenhydrAMINE 25 MG Capsule 50 MG PO (15:28)
[2024-01-01] MEDS: predniSONE 20 MG Tablet 40 MG PO (15:28)
== END 2024-01-01 15:44 | disposition home or self-care (01) ==
PROVIDERS: Emergency Provider Emergency Medicine; PCP Internal Medicine; Visit Provider Emergency Medicine
DX: T78.49XA Other allergy, initial encounter (principal); E78.00 Pure hypercholesterolemia, unspecified; I10 Essential (primary) hypertension; K21.9 Gastro-esophageal reflux disease without esophagitis; Z79.899 Other long term (current) drug therapy
CPT/HCPCS: 99283

== ENCOUNTER → 2024-04-06 | Outpatient (CLI) | payer OTHER, SELFPAY ==
[2024-04-06 16:39] LABS: Absolute Lymphocyte Count 1.72 X10^3/uL (0.83-4.51); Absolute Neutrophil Count 2.6 X10^3/uL (2.0-7.7); Basophil# 0.05 X10^3/uL; Basophil% 0.9 % (0-1); Eosinophil# 0.18 X10^3/uL; Eosinophils% 3.3 % (0-5); Hematocrit 41.5 % (40-54); Lymphocyte # 1.72 X10^3/ul (0.83-4.51); Lymphocyte % 31.3 % (19-41); Mean Corp Hgb Conc 31.3 g/dL (32-36); Mean Corpuscular Hgb 25.5 pg (27.0-32.0); Mean Corpuscular Volume 81.4 fL (80-94); Mean Platelet Vol. 10.8 fl (6.2-12.0); Monocyte# 0.94 X10^3/uL; Monocyte% 17.1 % (0-10); NRBC Flagged by Analyzer 0 % (0-5); Neutrophil # 2.56 X10^3/uL (2.7-7.7); Neutrophil % 46.5 % (47-70); Platelet Count 305 K/mm3 (150-450); RBC Distribution Width CV 14.9 % (11.6-14.6); White Blood Count 5.5 K/mm3 (4.4-11.0)
[2024-04-06 16:56] LABS: ALB/GLOB Ratio 0.8 RATIO (0.9-2.4); AST(SGOT) 10 U/L (15-37); Alanine Aminotransfer ALT/SGPT 19 U/L (16-61); Albumin, Serum 3.5 g/dL (3.2-5.0); Alkaline Phosphatase 105 U/L (45-117); Anion Gap 3 (5-15); BUN 21 mg/dL (7-18); BUN/Creat Ratio 19.3 RATIO (10-20); Calcium,Total 9.5 mg/dL (8.5-10.1); Chloride 106 mmol/L (98-107); Cholesterol 227 mg/dL (200); Creatinine, Serum 1.09 mg/dL (0.70-1.30); EST Glomerular Filtration Rate 74 mL/min (>60); Est Glom Filt Rate - Afr Amer 89 mL/min (>60); Globulin 4.3 g/dL (2.2-4.2); Glucose 110 mg/dL (74-106); High Density Lipoprotein 47 mg/dL; Potassium 4.1 mmol/L (3.5-5.1); Protein, Total 7.8 g/dL (6.4-8.2); Sodium Level 137 mmol/L (136-145); Triglycerides 232 mg/dL; Very Low Density Lipoprotein 46 mg/dL (5-40)
== END | disposition home or self-care (01) ==
LOC: BIMLAB 15:26
PROVIDERS: PCP Internal Medicine; Referring Provider Internal Medicine; Visit Provider Internal Medicine
DX: E78.5 Hyperlipidemia, unspecified (principal); I10 Essential (primary) hypertension
CPT/HCPCS: 36415; 80053; 80061; 85025